=== PATIENT | female | born 1950 | race Hispanic/Latino ===

== ENCOUNTER 2018-01-29 08:08 | Outpatient (CLI) | payer BC | END 2018-01-29 08:09 | disposition home or self-care (01) | LOC: BICMAMMO 08:08 | PROVIDERS: ATTEND Family Medicine | DX: Z12.31 Encounter for screening mammogram for malignant neoplasm of breast (principal); Z80.3 Family history of malignant neoplasm of breast | CPT/HCPCS: 77063; 77067 ==

== ENCOUNTER 2020-07-23 12:06 | Outpatient (CLI) | payer MEDICARE ==
--- NOTE | 2020-07-23 12:39 | RAD ---
EXAM: Lumbar spine 4 views including oblique views HISTORY: Low back pain COMPARISON: None FINDINGS: No evidence for acute fracture or dislocation or significant acute osseous process. Alignment:Grade 1 anterolisthesis of L5 on S1. Discs: Disc osteophytosis and facet arthrosis No evidence for a focal bone lesion. IMPRESSION: Lumbar spondylosis. Grade 1 anterolisthesis L5 on S1.
== END 2020-07-23 12:07 | disposition home or self-care (01) ==
LOC: BICRAD 12:06
PROVIDERS: ATTEND Internal Medicine Rheumatology
DX: M54.5 Low back pain (principal); M47.816 Spondylosis without myelopathy or radiculopathy, lumbar region; M43.17 Spondylolisthesis, lumbosacral region
CPT/HCPCS: 72110

== ENCOUNTER 2021-01-13 13:37 | Outpatient (CLI) | payer MEDICARE | END 2021-01-13 13:38 | disposition home or self-care (01) | LOC: BICMAMMO 13:37 | PROVIDERS: ATTEND Family Medicine | DX: Z12.31 Encounter for screening mammogram for malignant neoplasm of breast (principal); M85.89 Other specified disorders of bone density and structure, multiple sites; Z80.3 Family history of malignant neoplasm of breast | CPT/HCPCS: 77063; 77067; 77080 ==

== ENCOUNTER 2022-09-21 00:36 | Emergency (ER) | payer OTHER, MEDICARE | END 2022-09-21 03:04 | disposition home or self-care (01) | LOC: ERS 00:36 | DX: S13.4XXA Sprain of ligaments of cervical spine, initial encounter (principal); E78.5 Hyperlipidemia, unspecified; I10 Essential (primary) hypertension; W01.0XXA Fall on same level from slipping, tripping and stumbling without subsequent striking against object, initial encounter | CPT/HCPCS: 70450; 72125; 93005 ==

== ENCOUNTER 2024-01-17 15:58 | Outpatient (CLI) | payer MEDICARE | END 2024-01-17 15:59 | disposition home or self-care (01) | LOC: BICRAD 15:58 | PROVIDERS: ATTEND Family Medicine | DX: R10.31 Right lower quadrant pain (principal) | CPT/HCPCS: 72190 ==

== ENCOUNTER 2025-08-07 14:24 | Outpatient (CLI) | payer MEDICARE | END 2025-08-07 14:25 | disposition home or self-care (01) | LOC: BICCT 14:24 | PROVIDERS: ATTEND Internal Medicine Critical Care Medicine | DX: R91.8 Other nonspecific abnormal finding of lung field (principal) | CPT/HCPCS: 71250 ==